=== PATIENT | female | born 1995 | race Two or more races ===

== ENCOUNTER 2018-03-13 17:32 | Emergency (ER) | payer OTHER ==
[~2018-03-13] VITALS: Ht 162.6 cm; Wt 54.5 kg
[2018-03-13] MEDS ORDERED: acetaminophen 325mg tablet PO ONE (18:25)
[2018-03-13] MEDS ORDERED: ketorolac trometh. 30mg/ml inj. IV ONE (19:10)
[2018-03-13] MEDS ORDERED: morphine 4 MG/ML inj SYRINge IV PRN (19:10)
[2018-03-13] MEDS ORDERED: CefTRIAXone 2gm/D5W 50ml 50 ML IV ONE (19:10)
[2018-03-13] MEDS ORDERED: normal saline 1000ML IV soln IVB ONE (19:10)
[2018-03-13] MEDS ORDERED: ondansetron/PF 4mg/2ml inj IV ONE (19:10)
[2018-03-13] MEDS ORDERED: dexamethasone sod phosphate 10mg/ml inj IV STA (19:10)
[2018-03-13 19:35] LABS: BASOPHILS % (AUTO) 0.2 % (0-1); EOSINOPHILS % (AUTO) 0 % (0-6); HEMATOCRIT 38.6 % (35.0-45.0); HEMOGLOBIN 13.1 g/dl (12.0-16.0); LYMPHOCYTES # (AUTO) 0.5 X10'3 (1.1-4.8); LYMPHOCYTES % (AUTO) 3.6 % (21-51); MEAN CORPUSCULAR HEMOGLOBIN 31.5 PG (27.0-31.0); MEAN CORPUSCULAR VOLUME 92.6 FL (78-98); MEAN PLATELET VOLUME 8.1 FL (7.4-10.4); MONOCYTES # (AUTO) 0.4 X10'3 (0-0.9); MONOCYTES % (AUTO) 2.8 % (2-12); NEUTROPHILS # (AUTO) 12.7 X10'3 (1.8-7.7); NEUTROPHILS % (AUTO) 93.4 % (42-75); PLATELET COUNT 215 X10'3 (140-440); RED BLOOD COUNT 4.16 X10'6 (4.20-5.60); RED CELL DISTRIBUTION WIDTH 12.6 % (11.5-14.5); WHITE BLOOD COUNT 13.6 X10'3 (4.5-11.0)
[2018-03-13] MEDS ORDERED: AMOX-422 PO (20:27)
[2018-03-13] MEDS ORDERED: HYDR-3965 PO (20:27)
[2018-03-13] MEDS ORDERED: ONDA4TAB12 PO (20:27)
[2018-03-13 20:39] LABS: ALANINE AMINOTRANSFERASE 30 U/L (12-78); ALBUMIN 3.3 G/DL (3.4-5.0); ALBUMIN/GLOBULIN RATIO 0.8 (1.1-1.5); ALKALINE PHOSPHATASE 91 IU/L (46-116); ANION GAP 11 (8-16); ASPARTATE AMINO TRANSFERASE 22 U/L (10-37); BILIRUBIN,TOTAL 1.2 MG/DL (0.1-1.0); BLOOD UREA NITROGEN 13 MG/DL (7-18); BUN/CREATININE RATIO 16.9 (6.6-38.0); CALCIUM 8.5 MG/DL (8.5-10.1); CHLORIDE 100 MMOL/L (99-107); CREATININE 0.77 MG/DL (0.40-0.90); GLUCOSE 94 MG/DL (70-104); POTASSIUM 3.7 MMOL/L (3.5-5.1); SODIUM 135 MMOL/L (135-145); TOTAL CARBON DIOXIDE 24.3 MMOL/L (24-32); TOTAL PROTEIN 7.2 G/DL (6.4-8.2); eGFR > 90 ML/MIN
[2018-03-13 21:08] VITALS: BP 115/64
== END 2018-03-13 21:19 | disposition home or self-care (01) ==
LOC: ER 18:04
DX: J02.9 Acute pharyngitis, unspecified (principal)
CPT/HCPCS: 36415; 80053; 85025; 87502; 87503; 96365; 96375; 99284; J0696; J1100; J1885; J2270; J2405